=== PATIENT | male | born 1940 | race Caucasian/White ===

== ENCOUNTER 2018-09-26 09:09 | Emergency (ER) | payer MEDICARE, MEDICAID ==
--- NOTE | 2018-09-26 09:20 | ED ---
Lower Extremity - HPI Summary HPI Summary: A 77 y/o M brought in by ambulance presents to ED s/p fall while at work at [employer] onset this AM. Co-worker is at bedside in ED: his mobility has been worsening, he's been swaying more when he ambulates. She did not witness the fall, but was told he fell onto his L-side and was able to get up and ambulate after falling. Pt denies LOC, head trauma, ESPARZA, neck pain, UE and LE pain, hip pain. Pt has been feeling less steady than normal when on his feet. - History of Current Complaint Chief Complaint: EDExtremityLower Stated Complaint: FELL Time Seen by Provider: 09/26/18 09:13 Hx Obtained From: Patient, Other: - Co-worker at [employer] Mechanism Of Injury: Fall From A Standing Position Onset/Duration: Resolved - fall Severity Initially: Mild Severity Currently: None Associated Signs And Symptoms: Positive: Other - neg: head trauma, ESPARZA, neck pain , UE and LE pain, hip pain`. Negative: Syncope Able to Bear Weight: Yes Related History: Occupational Injury - Allergies/Home Medications Allergies/Adverse Reactions: Allergies Allergy/AdvReac Type Severity Reaction Status Date / Time MS Hepatitis B Antigen Allergy Unknown Verified 01/06/16 14:18 [From Heptavax-B] Reaction Details PMH/Surg Hx/FS Hx/Imm Hx Previously Healthy: No Cardiovascular History: Reports: Hx Hypertension GI History: Reports: Hx Gastroesophageal Reflux Disease Sensory History: Reports: Hx Hearing Aid - BILATERAL Neurological History: Reports: Other Neuro Impairments/Disorders - FOOT DROP Psychiatric History: Reports: Hx Depression - Cancer History Cancer Type, 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 GENERAL: Patient is a well-developed and nourished MALE who is lying comfortable in the stretcher. Patient is not in any acute respiratory distress. Patient ambulated in ED without pain. HEAD AND FACE: No signs of trauma. No ecchymosis, hematomas or skull depressions. No sinus tenderness. EYES: PERRLA, EOMI x 2, No injected conjunctiva, no nystagmus. EARS: Hearing grossly intact. Ear canals and tympanic membranes are within normal limits. MOUTH: Oropharynx within normal limits. NECK: Supple, trachea is midline, no adenopathy, no JVD, no carotid bruit, no c- spine tenderness, neck with full ROM. CHEST: Symmetric, no tenderness at palpation LUNGS: Clear to auscultation bilaterally. No wheezing or crackles. CVS: Regular rate and rhythm, S1 and S2 present, no murmurs or gallops appreciated. ABDOMEN: Soft, non-tender. No signs of distention. No rebound, no guarding, and no masses palpated. Bowel sounds are normal. EXTREMITIES: FROM in all major joints, no edema, no cyanosis or clubbing. NEURO: Alert and oriented x 3. No acute neurological deficits. Speech is normal and follows commands. SKIN: Dry and warm Triage Information Reviewed: Yes Vital Signs Reviewed: Yes - Lucio Coma Scale Best Eye Response: 4 - Spontaneous Best Motor Response: 6 - Obeys Commands Best Verbal Response: 5 - Oriented Coma Scale Total: 15 Diagnostics - Laboratory Result Diagrams: 09/26/18 09:41 09/26/18 09:41 Lab Statement: Any lab studies that have been ordered have been reviewed, and results considered in the medical decision making process. - Radiology CXR Radiology Interpretation Completed By: Radiologist Summary of Radiographic Findings: IMPRESSION: Cardiomegaly. ED provider has reviewed this report. - CT BRAIN CT CT Interpretation Completed By: Radiologist Summary of CT Findings: IMPRESSION: NO ACUTE INTRACRANIAL PATHOLOGY. CHRONIC SMALL VESSEL ISCHEMIC CHANGE. ED provider has reviewed this report. - EKG 0929 Cardiac Rate: NL - 72 bpm EKG Rhythm: Sinus Rhythm EKG Comparison: No Significant Change - from EKG on 01/06/16 Summary of EKG Findings: No ST elevation. Normal axis. Lower Extremity Course/Dx - Course Assessment/Plan: A 77 y/o M brought in by ambulance presents to ED s/p fall while at work at [employer] onset this AM. Co-worker is at bedside in ED: his mobility has been worsening, he's been swaying more when he ambulates. She did not witness the fall, but was told he fell onto his L-side and was able to get up and ambulate after falling. Pt denies LOC, head trauma, ESPARZA, neck pain , UE and LE pain, hip pain. Pt has been feeling less steady than normal when on his feet. Blood work is without any significant abnormality except for slight anemia, creatinine is 2.2 which is in acute renal insufficiency. Calcium is 8.5. Chest x-ray impression: Cardiomegaly. Head CT impression: No acute intra- abdominal pathology. Chronic small vessel ischemic changes. In the ED course the patient was given IV fluids. The patient already has acute renal insufficiency, therefore the patient was recommended to follow up with the primary care physician in the next couple days to follow-up improvement or worsening of the renal insufficiency. At this point the patient is back to baseline. I ambulated the patient myself, and the patient has a good steady walk. I discussed all the findings and test results with the patient. Patient was instructed to return to the emergency room immediately if any of the symptoms return or worsens. Plan of care was discussed with the patient and he understands and agrees. All questions were answered to patient satisfaction. There were no further complaints or concerns. Lung exam before discharge: CTA B/ L. Good air exchange. No wheezing or crackles heard. CVS: S1 and S2 present. No murmurs appreciated. Patient is alert and oriented x 3. Patient is hemodynamically stable. Patient will be discharged home with follow up PCP in the next 2-3 day. - Diagnoses Differential Diagnosis/HQI/PQRI: Positive: Contusion, Fracture (Closed), Sprain , Strain Provider Diagnoses: Accident due to mechanical fall without injury, Renal insufficiency Discharge - Sign-Out/Discharge Documenting (check all that apply): Patient Departure - D/C - Discharge Plan Condition: Stable Disposition: HOME Patient Education Materials: Fall Prevention for Older Adults (ED) Referrals: Verona Ryan MD [Primary Care Provider] - 3 Days Additional Instructions: RETURN TO THE ED FOR ANY WORSENING OR NEW SYMPTOMS. - Billing Disposition and Condition Condition: STABLE Disposition: Home - Attestation Statements Document Initiated by Scribe: Yes Documenting Scribe: [facility] Provider For Whom Scribe is Documenting (Include Credential): Dr. Armando Savage MD Scribe Attestation: I, Von Lamb, scribed for Dr. Armando Savage MD on 09/26/18 at 1213. Scribe Documentation Reviewed: Yes Provider Attestation: The documentation as recorded by the scribe, Von Lamb accurately reflects the service I personally performed and the decisions made by me, Dr. Armando Savage MD Status of Scribe Document: Viewed
[2018-09-26 10:04] LABS: ABS Basophils 0.1 10^3/ul (0-0.2); ABS Eosinophils 0.3 10^3/ul (0-0.6); ABS Lymphocytes 1.4 10^3/ul (1.0-4.8); ABS Monocytes 0.8 10^3/ul (0-0.8); ABS Neutrophils 2.9 10^3/ul (1.5-7.7); ABS Nucleated RBC 0 10^3/ul; Eosinophil % 4.9 %; Hematocrit 23 % (42-52); Hemoglobin 8.3 g/dl (14.0-18.0); Lymphocyte % 25.3 %; Mean Corpuscular HGB Conc 36 g/dl (31-36); Mean Corpuscular Hemoglobin 35 pg (27-31); Mean Corpuscular Volume 100 fL (80-94); Mean Platelet Volume 6.8 fL (7.4-10.4); Nucleated Red Blood Cells % 0.1; Platelet Count 235 10^3/ul (150-450); Red Blood Count 2.35 10^6/ul (4.00-5.40); Red Cell Distribution Width 13 % (10.5-15); White Blood Count 5.4 10^3/ul (3.5-10.8)
[2018-09-26 10:18] LABS: Albumin 3.6 g/dL (3.2-5.2); Albumin/Globulin Ratio 1.6 (1-3); BUN/Creatinine Ratio 10.9 (8-20); Calcium 8.5 mg/dL (8.6-10.3); EGFR Non-African American 29.3 (>60); Globulin 2.3 g/dL (2-4); Potassium 4.3 mmol/L (3.5-5.0); Total Bilirubin 0.3 mg/dL (0.2-1.0); Total Protein 5.9 g/dL (6.4-8.9)
[2018-09-26] MEDS ORDERED: NS 0.9% 1000 ML* 1,000 ML IV ONE (10:22)
[2018-09-26 12:43] VITALS: BP 135/76
== END 2018-09-26 12:30 | disposition home or self-care (01) ==
LOC: ED 09:09
DX: R26.81 Unsteadiness on feet (principal); N17.9 Acute kidney failure, unspecified; I51.7 Cardiomegaly; Z88.8 Allergy status to other drugs, medicaments and biological substances
CPT/HCPCS: 36415; 70450; 71046; 80053; 85025; 93005; 96360; 99282